=== PATIENT | male | born 1985 | race Caucasian/White ===

== ENCOUNTER 2017-04-02 17:29 | Emergency (ER) | payer SELFPAY ==
[~2017-04-02] VITALS: Ht 175.3 cm; Wt 74.8 kg
--- NOTE | 2017-04-02 17:40 | NUR ---
ER MD at the bedside for eval and exam.
[2017-04-02] MEDS ORDERED: ACETAMINOPHEN ES 500 MG TABLET PO ONE (17:45)
[2017-04-02] MEDS ORDERED: ONDANSETRON HCL 4 MG TABLET PO ONE (17:45)
[2017-04-02] MEDS ORDERED: ONDANSETRON HCL 4 MG TABLET ONE (18:07)
[2017-04-02] MEDS ORDERED: ACETAMINOPHEN ES 500 MG TABLET ONE (18:07)
[2017-04-02 18:10] LABS: BASOPHILS # (AUTO) 0.1 K/uL (0.0-8.0); BASOPHILS % (AUTO) 1.3 % (0.0-2.0); EOSINOPHILS # (AUTO) 0.3 K/uL (0.0-0.7); EOSINOPHILS % (AUTO) 6.7 % (0.0-7.0); HEMATOCRIT 43.8 % (36.7-47.1); HEMOGLOBIN 15.2 g/dL (12.5-16.3); LYMPHOCYTES # (AUTO) 1.4 K/uL (20.0-40.0); LYMPHOCYTES % (AUTO) 31.8 % (20.5-51.5); MEAN CORPUSCULAR HEMOGLOBIN 29.1 uug (23.8-33.4); MEAN CORPUSCULAR HGB CONC 35 g/dL (32.5-36.3); MEAN CORPUSCULAR VOLUME 83.8 fL (73.0-96.2); MONOCYTES # (AUTO) 0.3 K/uL (2.0-10.0); MONOCYTES % (AUTO) 6.6 % (0.0-11.0); NEUTROPHILS # (AUTO) 2.4 K/uL (1.8-8.9); NEUTROPHILS % (AUTO) 53.6 % (38.5-71.5); PLATELET COUNT (AUTO) 261 K/uL (152-348); RED BLOOD CELL COUNT(AUTO) 5.22 MIL/uL (4.06-5.63); WHITE BLOOD COUNT (AUTO) 4.5 K/uL (3.6-10.2)
[2017-04-02 18:14] LABS: CREATININE 0.9 mg/dL (0.6-1.3); POTASSIUM 3.8 mmol/L (3.5-5.1)
--- NOTE | 2017-04-02 18:23 | NUR ---
Patient discharged to home in stable conditon. Verbal after care instructions given by MD. Patient verbalizes understanding of instructions.
[2017-04-02 18:28] VITALS: BP 144/78
== END 2017-04-02 18:28 | disposition home or self-care (01) ==
LOC: ER 17:33
DX: R51 Headache (principal); R53.83 Other fatigue
CPT/HCPCS: 36415; 85025; A4663; A9150; Q0162